=== PATIENT | male | born 1965 | race African-American/Black ===

== ENCOUNTER 2018-09-30 17:50 | Emergency (ER) | payer OTHER ==
[~2018-09-30] VITALS: Ht 167.6 cm; Wt 60.0 kg
[~2018-09-30 17:50] MED LIST: ALTOPREV60 MG OR; CIPROFLOXACN500 MG PO; DILANTIN100 MG PO; DILAUDID 2MG2 MG/TA1 PO; DYRENIUM50 MG PO; HYDROCHLOROT25 MG PO; KEPPRA1000 MG PO; KEPPRA500 MG PO; LOPRESSOR 550 MG/TAB PO; LOVASTATIN20 M1 PO; NORVASC10 MG PO; TERAZOSIN2 MG OR; VISTARIL25 MG PO
[2018-09-30] MEDS ORDERED: LIPITOR40 M1 PO (18:24)
[2018-09-30] MEDS ORDERED: EUCERI1 TOP (18:26)
[2018-09-30] MEDS ORDERED: TOLTERODINE TART2 MG PO (18:29)
[2018-09-30] MEDS ORDERED: OMEPRAZOLE10 MG PO (18:30)
[2018-09-30] MEDS ORDERED: VICODIN ES1 TA1 PO (18:32)
[2018-09-30] MEDS ORDERED: STOOL SOFTENER100 M1 PO (18:34)
[2018-09-30 19:13] LABS: URINE BILIRUBIN - DIPSTICK NEGATIVE (NEGATIVE); URINE BLOOD DIPSTICK MODERATE (NEGATIVE); URINE COLOR YELLOW; URINE GLUCOSE - DIPSTICK NEGATIVE (NEGATIVE); URINE KETONE NEGATIVE (NEGATIVE); URINE LEUK ESTERASE NEGATIVE (NEGATIVE); URINE NITRITE - DIPSTICK NEGATIVE (Negative); URINE PROTEIN - DIPSTICK 30 mg/dL (NEG-TRACE)
[2018-09-30 19:14] LABS: HEMATOCRIT 40.3 % (39.0-50.0); HEMOGLOBIN 13.4 g/dl (14.0-18.0); IMMATURE GRANULOCYTES 0.4 % (0.0-5.0); MEAN CELL VOLUME 87.8 fL CALC (80.0-100.0); MEAN CORPUSCULAR HGB 29.2 pG CALC (26.0-32.0); MEAN CORPUSCULAR HGB CONC 33.3 g/L CALC (32.0-36.0); NEUT# 6.54 thou/uL (1.82-7.42); RED BLOOD COUNT 4.59 mill/uL (4.70-6.10); RED CELL DISTRI WIDTH 11.8 % (11.5-15.5)
[2018-09-30 19:22] LABS: URINE WBC 0-2 WBC/hpf (0-5)
[2018-09-30 19:26] LABS: ALBUMIN 3.8 g/dL (3.2-5.0); ALKALINE PHOSPHATASE 82 u/l (38-126); ANION GAP 13 (6-22 (CALC)); BILIRUBIN, TOTAL 0.5 mg/dL (0.0-1.4); BUN 9 mg/dL (9-20); BUN/CREATININE RATIO 15 (12-20 (CALC)); CARBON DIOXIDE 31 mmol/l (22-30); CHLORIDE 101 mmol/l (95-108); CREATININE 0.6 mg/dL (0.7-1.3); GFR > 60 ML/MIN (>=60 (CALC)); GFR FOR AFR.AMER. > 60 ML/MIN (>=60 (CALC)); LIPASE 149 u/l (23-300); SGOT/AST 48 u/l (17-59); SODIUM 139 mmol/l (137-146); TOTAL PROTEIN 7.2 g/dL (6.3-8.2)
[2018-09-30 19:27] LABS: POTASSIUM 5.8 mmol/l (3.5-5.1)
[2018-09-30 21:47] VITALS: BP 142/103
== END 2018-09-30 22:05 | disposition home or self-care (01) | DRG 392 ==
LOC: ED 17:50
DX: R10.84 Generalized abdominal pain (principal); E87.5 Hyperkalemia
CPT/HCPCS: Q9967

== ENCOUNTER 2021-02-15 06:40 | Emergency (ER) | payer OTHER ==
[~2021-02-15] VITALS: Ht 167.6 cm; Wt 68.0 kg
[~2021-02-15 06:40] MED LIST changes: +EUCERI1 TOP; +LIPITOR40 M1 PO; +OMEPRAZOLE10 MG PO; +STOOL SOFTENER100 M1 PO; +TOLTERODINE TART2 MG PO; +VICODIN ES1 TA1 PO
[2021-02-15 07:02] LABS: HEMATOCRIT 38.8 % (39.0-50.0); HEMOGLOBIN 12.6 g/dl (14.0-18.0); IMMATURE GRANULOCYTES 0.5 % (0.0-5.0); MEAN CORPUSCULAR HGB 29.2 pG CALC (26.0-32.0); MEAN CORPUSCULAR HGB CONC 32.5 g/dL CAL (32.0-36.0); NEUT# 2.24 thou/uL (1.82-7.42); RED BLOOD COUNT 4.31 mill/uL (4.70-6.10); RED CELL DISTRI WIDTH 12.4 % (11.5-15.5)
[2021-02-15 07:27] LABS: ACT PARTIAL THROMBO TIME 22.3 SECONDS (20.0-32.5); INTERNATIONAL NORMALIZED RATIO 0.9 RATIO (0.7-1.3); PROTHROMBIN TIME 9.9 SECONDS (9.0-12.5)
[2021-02-15 07:28] LABS: ALBUMIN 3.8 g/dL (3.2-5.0); ALKALINE PHOSPHATASE 44 u/l (38-126); BUN 12 mg/dL (9-20); BUN/CREATININE RATIO 15 (12-20 (CALC)); CHLORIDE 104 mmol/l (95-108); CREATININE 0.8 mg/dL (0.7-1.3); ETHYL ALCOHOL 0 mg/dl (0-30); GFR > 60 ML/MIN (>=60 (CALC)); GFR FOR AFR.AMER. > 60 ML/MIN (>=60 (CALC)); MAGNESIUM 1.8 mg/dL (1.6-2.3); SGOT/AST 28 u/l (17-59); SODIUM 137 mmol/l (137-146); TOTAL PROTEIN 7.2 g/dL (6.3-8.2)
[2021-02-15 07:39] LABS: ANION GAP 13 (6-22 (CALC)); BILIRUBIN, TOTAL 0.2 mg/dL (0.0-1.4); CARBON DIOXIDE 24 mmol/l (22-30); POTASSIUM 4.3 mmol/l (3.5-5.1)
[2021-02-15 07:40] LABS: MYOGLOBIN 106 ng/mL (0 - 121)
[2021-02-15] MEDS ORDERED: DEPAKOTE500 MG PO (07:42)
[2021-02-15] MEDS ORDERED: KEPPRA500 M2 PO (07:42)
[2021-02-15] MEDS ORDERED: LISINOPRIL20 MG PO (07:43)
[2021-02-15] MEDS ORDERED: NORVASC5 M1 PO (07:43)
[2021-02-15 08:17] LABS: URINE BILIRUBIN - DIPSTICK NEGATIVE (NEGATIVE); URINE BLOOD DIPSTICK NEGATIVE (NEGATIVE); URINE COLOR YELLOW; URINE GLUCOSE - DIPSTICK NEGATIVE (NEGATIVE); URINE KETONE NEGATIVE (NEGATIVE); URINE LEUK ESTERASE NEGATIVE (NEGATIVE); URINE PROTEIN - DIPSTICK NEGATIVE (NEG-TRACE); URINE UROBILINOGEN - DIPSTICK 0.2 E.U./dL (0.2)
[2021-02-15 08:18] LABS: URINE NITRITE - DIPSTICK NEGATIVE (Negative)
[2021-02-15 11:05] VITALS: BP 139/92
== END 2021-02-15 12:40 | disposition designated cancer center or children's hospital (05) | DRG 101 ==
LOC: ED 06:40
PROVIDERS: Family Medicine
DX: G40.909 Epilepsy, unspecified, not intractable, without status epilepticus (principal); I10 Essential (primary) hypertension; E78.5 Hyperlipidemia, unspecified; Z20.822 Contact with and (suspected) exposure to COVID-19
CPT/HCPCS: J2060

== ENCOUNTER 2021-06-03 08:28 | Emergency (ER) | payer OTHER ==
[~2021-06-03] VITALS: Ht 167.6 cm; Wt 75.0 kg
[~2021-06-03 08:28] MED LIST changes: +DEPAKOTE500 MG PO; +KEPPRA500 M2 PO; +LISINOPRIL20 MG PO; +NORVASC5 M1 PO
[2021-06-03 09:01] LABS: HEMATOCRIT 40.1 % (39.0-50.0); IMMATURE GRANULOCYTES 1.3 % (0.0-5.0); MEAN CELL VOLUME 91.1 fL CALC (80.0-100.0); MEAN CORPUSCULAR HGB 29.5 pG CALC (26.0-32.0); MEAN CORPUSCULAR HGB CONC 32.4 g/dL CAL (32.0-36.0); NEUT# 3.64 thou/uL (1.82-7.42); RED BLOOD COUNT 4.4 mill/uL (4.70-6.10); RED CELL DISTRI WIDTH 12.3 % (11.5-15.5)
[2021-06-03 09:05] LABS: ACT PARTIAL THROMBO TIME 18.8 SECONDS (20.0-32.5); INTERNATIONAL NORMALIZED RATIO 0.9 RATIO (0.7-1.3); PROTHROMBIN TIME 9.9 SECONDS (9.0-12.5)
[2021-06-03 09:06] LABS: ALKALINE PHOSPHATASE 53 u/l (38-126); ANION GAP 18 (6-22 (CALC)); BILIRUBIN, TOTAL 0.4 mg/dL (0.0-1.4); BUN 15 mg/dL (9-20); BUN/CREATININE RATIO 11 (12-20 (CALC)); CARBON DIOXIDE 19 mmol/l (22-30); CHLORIDE 106 mmol/l (95-108); CREATININE 1.4 mg/dL (0.7-1.3); ETHYL ALCOHOL 0 mg/dl (0-30); GFR 52 ML/MIN (>=60 (CALC)); GFR FOR AFR.AMER. > 60 ML/MIN (>=60 (CALC)); LIPASE 103 u/l (23-300); MAGNESIUM 1.8 mg/dL (1.6-2.3); POTASSIUM 4.1 mmol/l (3.5-5.1); SGOT/AST 33 u/l (17-59); SODIUM 139 mmol/l (137-146); TOTAL PROTEIN 7.8 g/dL (6.3-8.2)
[2021-06-03 09:47] LABS: URINE BILIRUBIN - DIPSTICK NEGATIVE (NEGATIVE); URINE BLOOD DIPSTICK NEGATIVE (NEGATIVE); URINE COLOR YELLOW; URINE GLUCOSE - DIPSTICK NEGATIVE (NEGATIVE); URINE KETONE NEGATIVE (NEGATIVE); URINE LEUK ESTERASE NEGATIVE (NEGATIVE); URINE PROTEIN - DIPSTICK 30 mg/dL (NEG-TRACE); URINE SPECIFIC GRAVITY 1.015
[2021-06-03 09:49] LABS: URINE NITRITE - DIPSTICK NEGATIVE (Negative)
[2021-06-03 09:51] LABS: URINE EPITHELIAL CELLS FEW EPI/hpf (0-FEW); URINE MUCUS MODERATE hpf (NONE-FEW)
[2021-06-03 09:52] VITALS: BP 120/77
== END 2021-06-03 09:52 | disposition short-term general hospital (02) | DRG 100 ==
LOC: ED 08:28
PROC: 0T9B70Z Drainage of Bladder with Drainage Device, Via Natural or Artificial Opening (ICD-10-PCS; principal; 2021-06-03)
PROC: 0BH17EZ Insertion of Endotracheal Airway into Trachea, Via Natural or Artificial Opening (ICD-10-PCS; 2021-06-03)
PROC: 5A1935Z Respiratory Ventilation, Less than 24 Consecutive Hours (ICD-10-PCS; 2021-06-03)
DX: G40.401 Other generalized epilepsy and epileptic syndromes, not intractable, with status epilepticus (principal); J96.90 Respiratory failure, unspecified, unspecified whether with hypoxia or hypercapnia; E87.2 Acidosis; R50.9 Fever, unspecified; I10 Essential (primary) hypertension; E78.5 Hyperlipidemia, unspecified; Z87.820 Personal history of traumatic brain injury; Z20.822 Contact with and (suspected) exposure to COVID-19
CPT/HCPCS: J0131; J1953

== ENCOUNTER 2023-01-23 16:07 | Emergency (ER) | payer OTHER ==
[~2023-01-23] VITALS: Ht 160 cm; Wt 65.8 kg
[2023-01-23 16:25] VITALS: BP 160/89
[2023-01-23 16:30] VITALS: BP 145/90
[2023-01-23 17:14] VITALS: BP 143/85
[2023-01-23 17:30] VITALS: BP 122/86
[2023-01-23 18:00] VITALS: BP 122/81
[2023-01-23 18:18] VITALS: BP 122/81
== END 2023-01-23 18:29 | disposition designated cancer center or children's hospital (05) | DRG 605 ==
LOC: ED 16:07
DX: S01.81XA Laceration without foreign body of other part of head, initial encounter (principal); M25.512 Pain in left shoulder; W01.190A Fall on same level from slipping, tripping and stumbling with subsequent striking against furniture, initial encounter; Y92.149 Unspecified place in prison as the place of occurrence of the external cause